=== PATIENT | male | born 1985 | race Caucasian/White ===

== ENCOUNTER 2018-12-27 08:51 | Emergency (ER) | payer SELFPAY ==
--- NOTE | 2018-12-27 10:50 | RAD REPORT ---
EXAM DESCRIPTION: US - Extremity Nonvascular Complete - 12/27/2018 10:38 am CLINICAL HISTORY: r/o abscess;Pain;Swelling COMPARISON: No comparisons TECHNIQUE: Real-time sonographic evaluation of the area of interest was performed. FINDINGS: Skin thickening and subcutaneous inflammatory changes are present in the area of interest. A 11 x 10 x 5 mm oblong hypoechoic structure with internal echogenicity is seen in the subcutaneous tissues below the left patella. This has the appearance of a reactive lymph node. No evidence of an a bscess seen.
[2018-12-27 12:05] LABS: Absolute Lymphocytes (CBC) 2.2 K/uL (0.7-4.9); Absolute Monocytes 1.5 K/uL (0.1-1.3); Absolute Neutrophil 9.4 K/uL (1.8-8.0); Basophils % 0.5 % (0-1.3); Eosinophils % 0.7 % (0-4.4); Hematocrit 45.9 % (39.6-49.0); Lymphocytes % 16.4 % (15.3-44.8); MPV 8.4 fL (7.6-11.3); Monocytes % 11.4 % (3.3-12.3); RBC Red Blood Cell Count 5.27 M/uL (4.33-5.43)
[2018-12-27] MEDS ORDERED: DOXYCYCLINE 100 MG CAP PO ONE (12:12)
[2018-12-27] MEDS ORDERED: SMZ./TMP. 800/160 MG TABLET ONE (12:12)
[2018-12-27 12:48] LABS: Potassium 3.9 mmol/L (3.5-5.1)
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
== END 2018-12-27 13:42 | disposition home or self-care (01) ==
LOC: ER 08:51
DX: L03.116 Cellulitis of left lower limb (principal); F17.210 Nicotine dependence, cigarettes, uncomplicated
CPT/HCPCS: 36415; 76881; 80048; 84145; 85025; 87040